=== PATIENT | male | born 1965 | race African-American/Black ===

== ENCOUNTER → 2018-12-02 | Outpatient (CLI) | payer OTHER | END | disposition home or self-care (01) | LOC: OIH 15:17 | PROVIDERS: ATTEND Family Medicine | DX: M25.561 Pain in right knee (principal) | CPT/HCPCS: 73562 ==

== ENCOUNTER → 2023-01-12 | Outpatient (CLI) | payer OTHER | END | disposition home or self-care (01) | LOC: RAH 11:10 | PROVIDERS: ATTEND Internal Medicine Gastroenterology | DX: R11.2 Nausea with vomiting, unspecified (principal); R12 Heartburn; R13.0 Aphagia | CPT/HCPCS: 78264; A9541 ==

== ENCOUNTER 2023-05-01 13:00 | Inpatient (IN) | payer OTHER ==
[2023-04-27 10:57] LABS: BASOPHILS # (AUTO) 0.04 K/uL (0.00-0.20); BASOPHILS % (AUTO) 0.8 % (0.0-5.0); EOSINOPHILS # (AUTO) 0.15 K/uL (0.00-0.70); EOSINOPHILS % (AUTO) 3.1 % (0.0-8.0); HEMATOCRIT 42.6 % (42-54); IMMATURE GRANULOCYTE ABSOLUTE 0.01 K/uL (0-1); LYMPHOCYTES # (AUTO) 2.3 K/uL (1.0-4.8); LYMPHOCYTES % (AUTO) 47.8 % (21.0-51.0); MEAN CORPUSCULAR HEMOGLOBIN 31.7 pg (27.0-33.0); MEAN CORPUSCULAR HGB CONC 34.3 g/dL (32.0-36.0); MEAN CORPUSCULAR VOLUME 92.4 fL (79-99); MONOCYTES # (AUTO) 0.4 K/uL (0.1-1.0); MONOCYTES % (AUTO) 8.6 % (3.0-13.0); NEUTROPHILS # (AUTO) 1.9 K/uL (1.8-7.7); NEUTROPHILS % (AUTO) 39.5 % (40.0-77.0); PLATELET COUNT (AUTO) 162 K/uL (130-400); RED BLOOD CELL COUNT(AUTO) 4.61 MIL/uL (4.50-6.20); RED CELL DISTRIBUTION WIDTH 12.7 % (11.0-15.5); WHITE BLOOD COUNT (AUTO) 4.8 K/uL (4.8-10.8)
[2023-04-27 11:11] LABS: CREATININE 1.6 mg/dL (0.5-1.5); POTASSIUM 4.3 mmol/L (3.5-5.1)
[2023-04-27 11:35] VITALS: BP 178/90; PULSE 58; RESP 17
[~2023-05-01] VITALS: Ht 175.3 cm; Wt 117.9 kg
[~2023-05-01 13:00] MED LIST: AMLO-258 PO; ATOR20TA65 PO; BENA40TA92 PO; CARB200T6 PO; CARV12.511 PO; CHOL100046 PO; CLON0.2T PO; EMPA25TA PO; ESCI20TA38 PO; FAMO20TA8 PO; INSU100C6 SQ; INSU100V52 SQ; PANT40TA54 PO; SPIR100T5 PO; TAMS-1 PO; TRAZ-185 PO
[2023-05-03] VITALS (37 sets, daily range): BP systolic 151–255; BP diastolic 59–117; PULSE 54–102; RESP 10–26; O2SAT 96–98
[2023-05-03] MEDS ORDERED: 0.9%NACL 1000ML 1,000 ML IV ONE (10:12)
[2023-05-03] MEDS ORDERED: CEFAZOLIN SODIUM 2 GM VIAL ONE (10:12)
[2023-05-03] MEDS ORDERED: CEFAZOLIN SODIUM 1 GM VIAL ONE (10:13)
[2023-05-03] MEDS ORDERED: SUCCINYLCHOLINE 200MG/10ML SYR ONE (12:50)
[2023-05-03] MEDS ORDERED: LIDOCAINE PF 100MG/5ML (2%) SYRINGE 5ML ONE (12:50)
[2023-05-03] MEDS ORDERED: MIDAZOLAM HCL 1 MG/ML 2ML VIAL ONE (12:55)
[2023-05-03] MEDS ORDERED: FENTANYL CITRATE PF 50 MCG/1 ML 5ML AMP IV ONE (12:55)
[2023-05-03] MEDS ORDERED: ROCURONIUM 10MG/1ML SYR 10 MG/ML ML ONE ×2 (12:55→14:24)
[2023-05-03] MEDS ORDERED: PROPOFOL 10 MG/ML 20ML VIAL IV ONE (12:55)
[2023-05-03] MEDS ORDERED: BUPIVACAINE/PF 0.25% 30ML VIAL IJ ONE (13:05)
[2023-05-03] MEDS ORDERED: CEFAZOLIN SODIUM 2 GM VIAL IVPB ONE (13:19)
[2023-05-03] MEDS ORDERED: BUPIVACAINE/PF 0.5% 30ML VIAL IV ONE (13:20)
[2023-05-03] MEDS ORDERED: DEXAMETHASONE SOD PHOSPHATE 10MG/ML 1ML VIAL ONE (13:31)
[2023-05-03] MEDS ORDERED: GLYCOPYRROLATE 1 MG/5 ML SYRINGE ONE (13:31)
[2023-05-03] MEDS ORDERED: NEOSTIGMINE 5MG/5ML SYR IV ONE (13:31)
[2023-05-03] MEDS ORDERED: EPHEDRINE SULFATE 50 MG/ML AMPULE ONE (13:32)
[2023-05-03] MEDS ORDERED: ONDANSETRON 4MG INJ ONE ×3 (13:32→17:34)
[2023-05-03] MEDS ORDERED: FENTANYL CITRATE PF 50 MCG/1 ML 2ML VIAL ONE (16:38)
[2023-05-03] MEDS ORDERED: SCOPOLAMINE HYDROBROMIDE 1 EACH ADH..PATCH TD ONE (16:42)
[2023-05-03] MEDS ORDERED: HYDRALAZINE 20MG/ML VIAL ONE ×2 (16:54→17:30)
[2023-05-03] MEDS ORDERED: ONDANSETRON 4MG INJ IVP PRN (17:00)
[2023-05-03] MEDS ORDERED: LACTATED RINGERS 1000ML 1,000 ML IV SCH (17:00)
[2023-05-03] MEDS ORDERED: PROCHLORPERAZINE 10MG/2ML INJ IV PRN (17:00)
[2023-05-03] MEDS ORDERED: KETOROLAC 15MG/ML VIAL (15MG/ML) IV PRN (17:00)
[2023-05-03] MEDS ORDERED: HYDROCODONE/ACETAMINOPHEN 7.5/325 MG 15 ML UDCUP PO PRN (17:00)
[2023-05-03] MEDS ORDERED: HYDROMORPHONE 1 MG INJ IVP PRN (17:00)
[2023-05-03] MEDS ORDERED: MEPERIDINE-PF 25 MG/ML SYG ONE (17:30)
[2023-05-03] MEDS ORDERED: METOCLOPRAMIDE 10 MG/2 ML VIAL ONE (17:42)
[2023-05-03] MEDS ORDERED: PROMETHAZINE HCL 25 MG/ML 1ML AMPULE IM ONE (17:57)
[2023-05-03] MEDS ORDERED: NITROGLYCERIN 1GM OINT 1 INCH/1GM TD ONE (18:03)
[2023-05-03] MEDS ORDERED: NICARDIPINE 25MG INJ IV ONE (18:13)
[2023-05-03] MEDS: INSULIN HUMULIN R 100 UNIT/ML 3ML SQ SCH (20:33)
[2023-05-03] MEDS: CARVEDILOL 12.5 MG TABLET PO SCH (20:34)
[2023-05-03] MEDS: ENOXAPARIN SODIUM 30 MG/0.3 ML SQ SCH (20:35)
[2023-05-03] MEDS: CARBAMAZEPINE 200 MG TABLET PO SCH (20:35)
[2023-05-03] MEDS ORDERED: FAMOTIDINE 20MG TAB PO SCH (21:00)
[2023-05-03] MEDS ORDERED: TAMSULOSIN HCL 0.4 MG CAP.ER.24H PO SCH (21:00)
[2023-05-03] MEDS ORDERED: CLONIDINE HCL 0.2 MG TABLET PO SCH (21:00)
[2023-05-03] MEDS ORDERED: TRAZODONE HCL 50 MG TAB PO SCH (21:00)
[2023-05-03] MEDS ORDERED: ATORVASTATIN 20 MG TABLET PO SCH (21:00)
[2023-05-03] MEDS: HYDRALAZINE 20MG/ML VIAL IV PRN (22:32)
[2023-05-03] MEDS ORDERED: PHARMACY COMMUNICATION MISC SCH (23:00)
[2023-05-03] MEDS: NICARDIPINE 25MG INJ 25 MG in 0.9% NACL 250ML 240 ML IV SCH (23:25)
[2023-05-04] VITALS (43 sets, daily range): BP systolic 112–183; BP diastolic 60–101; PULSE 72–106; RESP 11–42; O2SAT 97–98
[2023-05-04] MEDS: HYDRALAZINE 20MG/ML VIAL IV PRN (02:02)
[2023-05-04] MEDS: NICARDIPINE 25MG INJ 25 MG in 0.9% NACL 250ML 240 ML IV SCH (03:00)
[2023-05-04 04:20] LABS: BASOPHILS # (AUTO) 0.01 K/uL (0.00-0.20); BASOPHILS % (AUTO) 0.1 % (0.0-5.0); HEMATOCRIT 38.9 % (42-54); IMMATURE GRANULOCYTE ABSOLUTE 0.04 K/uL (0-1); LYMPHOCYTES # (AUTO) 1.5 K/uL (1.0-4.8); LYMPHOCYTES % (AUTO) 13.2 % (21.0-51.0); MEAN CORPUSCULAR HEMOGLOBIN 31.1 pg (27.0-33.0); MEAN CORPUSCULAR HGB CONC 33.2 g/dL (32.0-36.0); MEAN CORPUSCULAR VOLUME 93.7 fL (79-99); MONOCYTES # (AUTO) 0.8 K/uL (0.1-1.0); MONOCYTES % (AUTO) 7.6 % (3.0-13.0); NEUTROPHILS # (AUTO) 8.6 K/uL (1.8-7.7); NEUTROPHILS % (AUTO) 78.7 % (40.0-77.0); PLATELET COUNT (AUTO) 153 K/uL (130-400); RED BLOOD CELL COUNT(AUTO) 4.15 MIL/uL (4.50-6.20); RED CELL DISTRIBUTION WIDTH 12.7 % (11.0-15.5)
[2023-05-04 04:33] LABS: ALBUMIN 3.5 g/dL (3.5-5.0); BILIRUBIN,TOTAL 0.4 mg/dL (0.2-1.0); CREATININE 1.3 mg/dL (0.5-1.5); MAGNESIUM 1.6 mg/dL (1.80-2.40); POTASSIUM 4.4 mmol/L (3.5-5.1); TOTAL PROTEIN, SERUM 6.7 g/dL (6.0-8.3)
[2023-05-04 04:48] LABS: HEMOGLOBIN A1C 6.4 % (4.0-6.0)
[2023-05-04] MEDS ORDERED: MAGNESIUM 2GM PREMIX 50ML 50 ML IV ONE (05:00)
[2023-05-04] MEDS: ENOXAPARIN SODIUM 30 MG/0.3 ML SQ SCH (05:02)
[2023-05-04 05:10] LABS: B-TYPE NATRIURETIC PEPTIDE 125 pg/mL (0-100)
[2023-05-04] MEDS: INSULIN HUMULIN R 100 UNIT/ML 3ML SQ SCH ×2 (06:12→12:19)
[2023-05-04] MEDS ORDERED: MAGNESIUM 2GM PREMIX 50ML 50 ML IV PRN (07:30)
[2023-05-04] MEDS: CARVEDILOL 12.5 MG TABLET PO SCH (08:16)
[2023-05-04] MEDS: CARBAMAZEPINE 200 MG TABLET PO SCH ×2 (08:17→12:19)
[2023-05-04] MEDS ORDERED: MAGNESIUM 2GM PREMIX 50ML 50 ML IV SCH (08:30)
[2023-05-04] MEDS ORDERED: AMLODIPINE 5 MG TAB PO SCH (09:00)
[2023-05-04] MEDS ORDERED: BENAZEPRIL HCL 10 MG TABLET PO SCH (09:00)
[2023-05-04] MEDS ORDERED: INSULIN GLARGINE 100 UNITS/ML 10 ML VIAL SQ ONE (09:00)
[2023-05-04] MEDS ORDERED: SPIRONOLACTONE 25 MG TAB PO SCH (09:00)
[2023-05-04] MEDS ORDERED: PANTOPRAZOLE 40 MG/VIAL IVP SCH (09:00)
[2023-05-04] MEDS ORDERED: CLONIDINE HCL 0.2 MG TABLET PO SCH (09:00)
[2023-05-04] MEDS ORDERED: EMPAGLIFLOZIN 10MG TABLET PO ONE (09:00)
[2023-05-04] MEDS ORDERED: HYDRALAZINE 20MG/ML VIAL IV PRN (09:30)
[2023-05-04] MEDS ORDERED: CARV12.580 PO (13:15)
[2023-05-04] MEDS ORDERED: CLON-353 PO ×2 (13:15)
== END 2023-05-04 14:04 | disposition home or self-care (01) | DRG 327 ==
LOC: DAHIP 05-03 08:45 → 2BH 05-03 19:22
PROVIDERS: ADMIT Hospitalist; ATTEND Surgery
PROC: 0DJ08ZZ Inspection of Upper Intestinal Tract, Via Natural or Artificial Opening Endoscopic (ICD-10-PCS; 2023-05-03)
PROC: 8E0W4CZ Robotic Assisted Procedure of Trunk Region, Percutaneous Endoscopic Approach (ICD-10-PCS; 2023-05-03)
PROC: 0DB64Z3 Excision of Stomach, Percutaneous Endoscopic Approach, Vertical (ICD-10-PCS; principal; 2023-05-03 13:09)
PROC: 0BUT4JZ Supplement Diaphragm with Synthetic Substitute, Percutaneous Endoscopic Approach (ICD-10-PCS; 2023-05-03 13:09)
DX: K44.9 Diaphragmatic hernia without obstruction or gangrene (principal); I16.1 Hypertensive emergency; K21.9 Gastro-esophageal reflux disease without esophagitis; E66.01 Morbid (severe) obesity due to excess calories; E11.9 Type 2 diabetes mellitus without complications; E78.5 Hyperlipidemia, unspecified; F32.A Depression, unspecified; I10 Essential (primary) hypertension; Z82.49 Family history of ischemic heart disease and other diseases of the circulatory system; Z83.3 Family history of diabetes mellitus; Z88.8 Allergy status to other drugs, medicaments and biological substances; Z68.38 Body mass index [BMI] 38.0-38.9, adult; Z79.84 Long term (current) use of oral hypoglycemic drugs
CPT/HCPCS: 36415; 43235; 71045; 80048; 80053; 80061; 82948; 83036; 83735; 83880; 85025; 86850; 86900; 86901; 93005; C9113; G0378; J0330; J0360; J0690; J0780; J1100; J1170; J1650; J1815; J2001; J2175; J2250; J2405; J2550; J2704; J2710; J2765; J3010; J3475; J3490; J7030; J7050; A4215; A4221; A4222; A4223; A4600; A4663; A6260; J0665

== ENCOUNTER → 2024-05-08 | Outpatient (CLI) | payer OTHER ==
[~2024-05-08] MED LIST changes: -CARV12.511 PO; +CARV12.580 PO; +CLON-353 PO; -CLON0.2T PO
--- NOTE | 2024-05-08 11:52 | HMCIMG ---
UPPER GI TRACT, WO KUB REASON: DIAPHRAGMATIC HERNIA W/O OBSTRUCTION OR GANGRENE COMPARISON: None TECHNIQUE: Air-contrast upper GI was performed with fluoroscopic guidance. 11 short cine sequences were acquired. Fluoroscopy time was 1 minute. FINDINGS: There is normal esophageal peristalsis. There is a small hiatal hernia. There is abnormal appearance of the stomach, the gastric cardia and the upper body of the stomach appear diffusely narrowed, the location of the EG junction is a not well defined. There is no evidence of discrete focal mass. Body and antrum of the stomach appear normal as does the duodenal C-loop. Narrowed the upper body and cardia of the stomach appear fixed and persistent throughout the exam. There was eventual moderate to marked gastroesophageal reflux, to the mid esophagus, with distention of the lower esophageal segment. IMPRESSION: 1. Small to moderate hiatal hernia. 2. Moderate to marked gastroesophageal reflux as described 3. Unusual narrowed appearance of the gastric cardia and upper body of the stomach, but no discrete focal mass identified, endoscopic correlation recommended in this regard 4. Otherwise unremarkable exam.
== END | disposition home or self-care (01) ==
LOC: RAH 10:04
PROVIDERS: ATTEND Surgery
DX: K44.9 Diaphragmatic hernia without obstruction or gangrene (principal); K21.9 Gastro-esophageal reflux disease without esophagitis
CPT/HCPCS: 74240